=== PATIENT | female | born 1980 | race Caucasian/White ===

== ENCOUNTER 2018-08-20 18:57 | Emergency (ER) | payer OTHER ==
[2018-08-20] MEDS ORDERED: IBUPROFEN 600 MG TAB PO ONE (19:09)
--- NOTE | 2018-08-20 19:10 | EDPHY ---
H & P Stated Complaint: L anlke injury, rolled during volleyball Time Seen by Provider: 08/20/18 19:06 HPI/ROS: Chief Complaint: Left ankle injury HPI: The patient presents emergency department with complaints of left lateral ankle pain after she rolled her ankle while playing volleyball. The patient does have a history of chronic ankle injuries and has injured multiple ligaments in the left ankle in the past. The patient denies any acute numbness or weakness. She is able to weightbear however it is uncomfortable. She denies pain in her knee, hip or back. She reports her symptoms are moderate in nature. REVIEW OF SYSTEMS: Neuro: no headache, numbness, weakness Musculoskeletal: as above Skin: no abrasion or lacerations Source: Patient Exam Limitations: No limitations - Personal History Current Tetanus/Diphtheria Vaccine: Yes Current Tetanus Diphtheria and Acellular Pertussis (TDAP): Yes - Medical/Surgical History Hx Asthma: No Hx Chronic Respiratory Disease: No Hx Diabetes: No Hx Cardiac Disease: No Hx Renal Disease: No Hx Cirrhosis: No Hx Alcoholism: No Hx HIV/AIDS: No Hx Splenectomy or Spleen Trauma: No Other PMH: PMHx: depression. PSHx: R hip sx - Social History Smoking Status: Never smoked - Physical Exam Exam: Extremity physical exam General appearance: alert no distress Left ankle: There is swelling and tenderness over the lateral malleolus and medial malleolus. Ankle joint is stable and there is no tenderness over the Achilles tendon. The foot is nontender without swelling. Neurologic exam: The patient has normal sensation and motor function distal to the injury. Vascular exam: Normal pulses and capillary refill in the foot DIFFERENTIAL DIAGNOSIS: After history and physical exam differential diagnosis was considered for ankle injury including sprain, fracture, dislocation and soft tissue injury. Constitutional: Initial Vital Signs Temperature (C) 37.2 C 08/20/18 19:01 Heart Rate 100 08/20/18 19:01 Respiratory Rate 20 08/20/18 19:01 Blood Pressure 127/95 H 08/20/18 19:01 O2 Sat (%) 98 08/20/18 19:01 O2 Delivery Mode Room Air Allergies/Adverse Reactions: No Known Allergies Allergy (Unverified 08/20/18 19:01) Home Medications: Medication Instructions Recorded VYVANSE 08/20/18 buPROPion 08/20/18 Medical Decision Making - Diagnostics Imaging Results: Imaging Impressions Ankle X-Ray 08/20/18 19:04 Impression: Ankle sprain. ED Course/Re-evaluation: Patient will be placed in a Bond boot. She is given Orthopedic follow-up with Dr. Rodriguez. There is no evidence of an obvious fracture today. - Data Points Medications Given: Discontinued Medications Ibuprofen (Motrin) 600 mg PO EDNOW ONE Stop: 08/20/18 19:10 Last Admin: 08/20/18 19:11 Dose: 600 mg Departure - Departure Disposition: Home, Routine, Self-Care Clinical Impression: Ankle sprain Qualifiers: Encounter type: initial encounter Involved ligament of ankle: calcaneofibular ligament Laterality: left Qualified Code(s): S93.412A - Sprain of calcaneofibular ligament of left ankle, initial encounter Condition: Good Instructions: Ankle Sprain (ED) Additional Instructions: 1. Bond boot and crutches as needed for comfort. 2. Ice as directed. 3. Take Ibuprofen or Motrin 600 mg by mouth three times a day. 4. Follow up with the orthopedic surgeon you have been referred to for any persistent pain, immobility or difficulty returning to normal activity Referrals: Hanh Rodriguez MD [Medical Doctor] - As per Instructions
[2018-08-20 19:42] VITALS: BP 124/80
== END 2018-08-20 19:40 | disposition home or self-care (01) ==
DX: S93.412A Sprain of calcaneofibular ligament of left ankle, initial encounter (principal); X50.1XXA Overexertion from prolonged static or awkward postures, initial encounter; Y93.68 Activity, volleyball (beach) (court)
CPT/HCPCS: L4386